=== PATIENT | female | born 1990 | race Caucasian/White ===

== ENCOUNTER 2025-05-21 09:55 | Emergency (ER) | payer BC, SELFPAY ==
[2025-05-21 09:57] VITALS: BP 146/104
--- NOTE | 2025-05-21 10:48 | ED.GENMED ---
History of Present Illness
General
Chief Complaint: Problems
Source: patient
Time Seen by Provider: 05/21/25 10:33
History of Present Illness
History of Present Illness:
This patient is a 34-year-old female presents the emergency department, LMP April 10, who states she has been under a lot of stress given that she is moving. She noticed first that she had a decreased appetite, but then took a test and
it was positive. About 2 weeks ago she started develop nausea, typical of prior pregnancies. However, over the weekend she has had intractable nonbloody vomiting which continues today. She has been able to tolerate just some liquids and
applesauce. She denies vaginal bleeding or discharge, abdominal pain, chest pain, shortness of breath, dizziness. She did have chills and sweats last night but no longer. Patient has been taking B6 and Unisom at home with partial relief of
symptoms.
Past History
Past History
ED Past Medical History: Psychiatric (PMDD), Other (Migraines), Other (Iron deficiency anemia) and Other (POTS)
ED Past Surgical History: Gynecological (D and E status post missed AB)
Social History
Tobacco: Non-smoker
Alcohol: None
Drug: None
Personal:
Living: with family
Employment: Employed
Phy Exam
Physical Exam
Physical Exam:
GENERAL: Alert , in no apparent distress
EYE: pupils equal and reactive
NECK: Supple, no significant adenopathy.
ENT: o/p clr, mm dry.
CARDIAC: Regular rate and rhythm .
LUNGS: Clear breath sounds bilaterally, no acute respiratory distress, no wheezes/rales/rhonchi
ABDOMEN: Soft, without focal tenderness, no r/g, no cvat
NEUROLOGICAL: Alert and oriented, no focal neuro deficits
SKIN: Warm and dry, skin intact.
MUSCULOSKELETAL: No edema, well perfused.
PSYCH: Normal and appropriate interaction.
Course
Orders/Labs/Results
Orders:
Orders
05/21/25 10:44
0.9% Sodium Chloride 1000 ml [Nss] 1,000 ml IV BOLUS
US 1st Trimester Urgent
Comment:
Reason For Exam: repeated vomiting
05/21/25 10:46
Diphenhydramine [Benadryl] 25 mg IV NOW STA
05/21/25 10:59
Beta HCG Quantitative Urgent
Is this a screen?: No
Complete Blood Count/No Diff Urgent
Comprehensive Metabolic Panel Urgent
Magnesium Urgent
Phosphorus Urgent
TSH Urgent
05/21/25 12:17
Urinalysis Reflex To Culture Urgent
Specimen Description:
Date Specimen was Collected: 05/21/25
Time Specimen was Collected: 12:15
Urine Microscopic Reflex Cult Urgent
Urine Culture Urgent
KELLEN Source: U
Specimen Description:
Date Specimen was Collected: 05/21/25
Time Specimen was Collected: 12:15
05/21/25 12:50
0.9% Sodium Chloride 1000 ml [Nss] 1,000 ml IV BOLUS
Abnormal Lab Results
05/21/25 05/21/25
10:59 12:17
BUN 5 L mg/dl
(7-17)
Creatinine 0.5 L mg/dL
(0.6-1.0)
Glucose 107 H mg/dl
(70-99)
Urine Ketones 2+ A
(Negative)
Leukocyte Esterase Rfl 2+ A
(Negative)
Urine Bacteria (Reflex) Few A
(Negative)
05/21/25 10:59
05/21/25 10:59
Vital Signs
Initial and Last Documented VS:
Initial Vital Signs
Temp Pulse Resp BP Pulse Ox
98.4 F 107 16 146/104 100
05/21/25 09:57 05/21/25 09:57 05/21/25 09:57 05/21/25 09:57 05/21/25 09:57
Last Documented Vital Signs
Temp Pulse Resp BP Pulse Ox
98.4 F 83 13 115/64 99
05/21/25 09:57 05/21/25 14:00 05/21/25 14:00 05/21/25 14:00 05/21/25 13:45
Information
Weeks gestation: Weeks: (approx 6)
Location: Location: ([facility])
*Pulse Oximetry
SaO2: 100
Oxygen Mode of Delivery: Room air
Patient hypoxic: no
*Critical Care Note
Total Time (30-74mins, 75-104mins- exclusive of procedures): Not Applicable
Update Note
Update Note:
Patient presents to the Emergency Department with ___intractable vomiting
Number and Complexity of Problems Addressed at the Encounter
� Chronic conditions affecting care:
� Acute Exacerbation and/or Progression of Chronic Illness:
� Differential Diagnosis includes: But not limited to hyperemesis gravidarum, viral illness,, electrolyte abnormality, etc. etc.
Amount and/or Complexity of Data to be Reviewed and Analyzed
� I performed an independent evaluation of and my interpretation is:
EKG:
CT:
Xrays:
Laboratory Studies: Mild ketonuria noted, otherwise generally unremarkable
Other: Ultrasound IUP 6 weeks 2 days patient given copy of report
� Review of other/old records reveals:
� Clinical information was obtained by an independent historian:
� Prescriptions/Medications Considered but not given:
� Further testing considered but not performed:
Risk of Complications and/or Morbidity or Mortality of Patient Management
� Social determinants of health affecting care:
� Discussion with other providers (PCP, Hospitalists, Consultants, etc):
� Escalation of care including admission/observation vs risk of discharge considered: Multiple reassessments, patient feels much better, would like to go home, has already been in contact with her MEDICATION CARE MANAGER doctor and will follow-up
with him or her within the next 24 to 48 hours. Discussed with patient importance of follow-up and reasons return to the ER.
ED Attending Note
-
Portions of this chart may have been created with voice recognition software.� Occasional wrong word or��sound alike� substitutions may have occurred due to the inherent limitations of voice recognition software.
Discharge Plan
Departure
Patient Disposition: Home (Routine Discharge)
Date of Disposition: 05/21/25
Time of Disposition: 14:19
Patient with high blood pressure during this ER visit?: Yes
Condition: Good
Discharge Problem:
Vomiting
Instructions: symptoms, BLOOD PRESSURE, Acute Nausea and Vomiting
Prescriptions:
No Action
Ibuprofen
800 mg PO Q8 PRN (Reason: galloway)
Ocella 3 mg-0.03 mg Tablet
1 PO DAILY
Prozac:
10 mg PO DAILY
Referrals:
Toi Barber, [Family Provider, Internal Medicine]
Stand Alone Forms: Return to Work
Activity Restrictions/Additional Instructions:
IF YOU DEVELOP REPEATED VOMITING, ANY BLEEDING, PELVIC/ABDOMINAL PAIN, FEVER, OR OTHER WORRISOME SIGNS, GO TO THE ER IMMEDIATELY!
Interventions
Interventions:
*Risk Screen - Suicide Last Done: 05/21/25 11:05
*General Assessment Last Done: 05/21/25 11:05
*Neglect/Abuse Screening Last Done: 05/21/25 11:05
*ED COVID-19 Vaccine History Last Done: 05/21/25 11:05
*Nursing Disposition Last Done: 05/21/25 14:41
ED-Female Genitourinary Assessment Last Done: 05/21/25 11:05
Discharge Date and Time
Discharge Date/Time: 05/21/25 14:42
Print Language: TELUGU
[2025-05-21] MEDS: BENADRYL 25 MG IV (11:01)
[2025-05-21] MEDS: NSS 1000 IV ×2 (11:02→12:51)
[2025-05-21 11:10] LABS: Hematocrit 37.0 % (37.0-47.0); Hemoglobin 12.9 g/dL (12.0-16.0); Mean Corp Hgb Conc. 34.9 g/dL (33.0-37.0); Mean Corpuscular Volume 84.9 fL (81.0-99.0); Platelet Count 256 10^3/uL (130-400); Red Cell Dist. Width 12.8 % (11.5-14.5)
[2025-05-21 11:44] LABS: ALT (SGPT) 19 U/L (0-35); AST (SGOT) 20 U/L (14-36); Albumin 4.7 g/dl (3.5-5.0); Alkaline Phosphatase 40 U/L (38-126); Blood Urea Nitrogen 5 mg/dl (7-17); Calcium 9.7 mg/dl (8.4-10.2); Carbon Dioxide 23 mmol/L (22-30); Chloride 105 mmol/L (98-107); Glucose 107 mg/dl (70-99); Magnesium 2.1 mg/dl (1.6-2.3); Potassium 3.8 mmol/L (3.5-5.1); Sodium 136 mmol/L (135-145); Total Protein 7.8 g/dl (6.3-8.2); eGFR > 60.00
[2025-05-21 12:00] LABS: TSH 1.41 uIU/ml (0.47-4.68)
[2025-05-21 12:16] VITALS: BP 111/65
[2025-05-21 12:22] LABS: Urine Character Clear (Clear)
[2025-05-21 12:55] LABS: Beta HCG Quantitative 39369.00 mIU/ml
[2025-05-21 13:00] VITALS: BP 113/57
[2025-05-21 13:25] LABS: Urine Squamous Cell >30 /LPF (Few)
[2025-05-21 13:26] LABS: Urine Red Blood Cell 0-2 /HPF (0-2); Urine White Cell 0-2 /HPF (0-5)
[2025-05-21 14:00] VITALS: BP 115/64
== END 2025-05-21 14:42 | disposition home or self-care (01) ==
LOC: EMR 09:55
PROVIDERS: EMERGENCY PHYSICIAN Emergency Medicine; FAMILY PHYSICIAN Internal Medicine
DX: O21.9 Vomiting of pregnancy, unspecified (principal); Z3A.01 Less than 8 weeks gestation of pregnancy
CPT/HCPCS: 96374; 96361; 99284; 76801; 80053; 81003; 81015; 83735; 84100; 84443; 84702; 85027; 87086